=== PATIENT | female | born 1985 | race Caucasian/White ===

== ENCOUNTER 2017-11-15 09:10 | Inpatient (IN) | payer OTHER ==
[~2017-11-15 09:10] MED LIST: DEXTROSE 5%-LACTATED RINGERS 1,000 ML IV SCH
[2017-11-15] MEDS ORDERED: AMPICILLIN SODIUM 2 GM VIAL ONE (09:54)
[2017-11-15] MEDS ORDERED: AMPICILLIN - 2 GM in SODIUM CHLORIDE 100 ML IVPB ONE (09:55)
[2017-11-15 10:14] VITALS: BMI 27.7
--- NOTE | 2017-11-15 11:53 | HP ---
Past Medical History - Admission History Source: Patient - Past Medical History ...: 5 ...Para: 3 ...Term: 3 ...: 0 ...Spon : 1 ...Induced : 0 ...Multiple Gestation: 0 ...EDC by Sono: 11/08/17 - Past Surgical History Past Surgical History: Yes: None Hx Myomectomy: No Hx Transabdominal Cerclage: No - Smoking History Smoking history: Never smoked Have you smoked in the past 12 months: No - Alcohol/Substance Use Hx Alcohol Use: No History of Substance Use: reports: None - Social History Usual Living Arrangement: Yes: With Significant Other Home Medications - Allergies Allergies/Adverse Reactions: Allergies Allergy/AdvReac Type Severity Reaction Status Date / Time No Known Allergies Allergy Verified 11/11/17 09:29 - Home Medications Home Medications: Ambulatory Orders Ferrous Sulfate 325 mg PO DAILY 11/11/17 Pnv No.95/Ferrous Fum/Folic AC [ Vitamin Tablet] 1 each PO DAILY Review of Systems Unable to obtain ROS, reason: neg VB/LOF. Physical Exam - Maternity Vital Signs: Vital Signs Temperature 97.8 F 11/15/17 10:00 Pulse Rate 80 11/15/17 10:00 Respiratory Rate 20 11/15/17 10:00 Blood Pressure 114/76 11/15/17 10:00 O2 Sat by Pulse Oximetry (%) - Abdominal Exam/OB Number of Fetuses: Single Presentation: Vertex Contractions: Yes Regularity: Regular Intensity: Moderate Monitor Mode: External Category: I Accelerations: None Decelerations: Early - Vaginal Exam/OB Vaginal Bleediing: No Presentation: Vertex/Position Station: -3 (50/4-5/-3, intact on presentation; exam by RN) Problem List - Problems (1) Uterine contractions Code(s): LJS3600 - Assessment/Plan 32yo @ 41wks here in labor Cat 1 tracing, early decels Desires NCB Anticipate
[2017-11-15] MEDS ORDERED: WITCH HAZEL 50% (TUCKS) 40 PAD/JAR PAD TP PRN (11:57)
[2017-11-15] MEDS ORDERED: BENZOCAINE 20% 57 GM BOTTLE TP PRN (11:57)
[2017-11-15] MEDS ORDERED: BENZOCAINE 28 GM HEMORRHOIDAL OINTMENT TP PRN (11:57)
[2017-11-15] MEDS ORDERED: BISACODYL 10 MG SUPP.RECT RC PRN (11:57)
--- NOTE | 2017-11-15 11:57 | PN ---
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 No anesthesia. 41wk gestation. Loose body nuchal delivered through. Terminal meconium. Spontaneous delivery of anterior shoulder. placed on maternal abdomen. Cord clamped and cut. Weight pending to allow sufficient skin to skin. Apgars 9/9. Spontaneous delivery of intact placenta. Fundus firm. Perineum inspected, small first degree laceration , repaired with 3-0 vicryl after 44cc of 1% lidocaine injected. Hemostasis noted. EBL 250. Mother and baby doing well.
[2017-11-15] MEDS ORDERED: OXYTOCIN 20 UNITS in 0.9% NS 20 UNIT/1,000 ML INFUS.BAG IV SCH (12:00)
[2017-11-15] MEDS ORDERED: IBUPROFEN 600 MG TABLET (FP) PO ONE (12:09)
[2017-11-15] MEDS ORDERED: ACETAMINOPHEN 325 MG TABLET (FP) ONE (12:09)
[2017-11-15] MEDS: ACETAMINOPHEN 325 MG TABLET (FP) PO PRN ×3 (12:10→21:53)
[2017-11-15] MEDS: IBUPROFEN 600 MG TABLET (FP) PO PRN ×3 (12:10→21:54)
[2017-11-15] MEDS ORDERED: AMPICILLIN - 1 GM in SODIUM CHLORIDE 100 ML IVPB SCH (14:00)
[2017-11-16] MEDS: ACETAMINOPHEN 325 MG TABLET (FP) PO PRN ×4 (02:06→23:14)
[2017-11-16] MEDS: IBUPROFEN 600 MG TABLET (FP) PO PRN ×4 (02:06→23:13)
[2017-11-16 06:55] LABS: BASO % 0.6 % (0-2.0); EOS % 1.9 % (0-4.5); HEMATOCRIT 35.3 % (32.4-45.2); LYMPH % 26.1 % (8-40); MCH 31.1 pg (25.7-33.7); MCHC 33.9 g/dl (32.0-36.0); MEAN CELL VOLUME 91.9 fl (80-96); MEAN PLT VOLUME 8.9 fl (7.5-11.1); MONO % 6.8 % (3.8-10.2); NEUT % 64.6 % (42.8-82.8); PLATELET COUNT 176 K/MM3 (134-434); RBC 3.84 M/mm3 (3.60-5.2); RDW 13.5 % (11.6-15.6); WHITE BLOOD COUNT 13.5 K/mm3 (4.0-10.0)
[2017-11-16] MEDS: PRENATAL VITAMINS W/ FOLIC ACID TABLET (FP) PO SCH (09:21)
--- NOTE | 2017-11-16 10:56 | PN ---
Post Progress Note Type of Delivery: Vital Signs: Vital Signs Temperature 98 F 11/16/17 08:40 Pulse Rate 88 11/16/17 08:40 Respiratory Rate 20 11/16/17 08:40 Blood Pressure 109/69 11/16/17 08:40 O2 Sat by Pulse Oximetry (%) Uterus: Yes: Fundus Firm, Fundus below umbilicus Abdomen/GI: Yes: Abdomen soft Lochia: Yes: Rubra Lochia, amount: Small Extremities: Yes: Calves non-tender Activity: Ambulating - Labs Labs: CBC WBC 13.5 K/mm3 (4.0-10.0) H 11/16/17 05:30 RBC 3.84 M/mm3 (3.60-5.2) 11/16/17 05:30 Hgb 12.0 GM/dL (10.7-15.3) 11/16/17 05:30 Hct 35.3 % (32.4-45.2) 11/16/17 05:30 MCV 91.9 fl (80-96) 11/16/17 05:30 MCH 31.1 pg (25.7-33.7) 11/16/17 05:30 MCHC 33.9 g/dl (32.0-36.0) 11/16/17 05:30 RDW 13.5 % (11.6-15.6) 11/16/17 05:30 Plt Count 176 K/MM3 (134-434) 11/16/17 05:30 MPV 8.9 fl (7.5-11.1) 11/16/17 05:30 Absolute Neuts (auto) 8.7 K/mm3 (1.5-8.0) H 11/16/17 05:30 Neutrophils % 64.6 % (42.8-82.8) 11/16/17 05:30 Lymphocytes % 26.1 % (8-40) D 11/16/17 05:30 Monocytes % 6.8 % (3.8-10.2) 11/16/17 05:30 Eosinophils % 1.9 % (0-4.5) D 11/16/17 05:30 Basophils % 0.6 % (0-2.0) 11/16/17 05:30 Nucleated RBC % 0 % (0-0) 11/16/17 05:30 Problem List - Problems (1) Uterine contractions Code(s): [id number] - Assessment/Plan 32yo s/p , PPD#1 Rh Pos/RI/boy Routine PP care OOB, ambulate D/C to home tomorrow Jaden Mason MD
[2017-11-16] MEDS ORDERED: SENNOSIDES/DOCUSATE COMBO (SENNA PLUS) TABLET (UD) PO PRN (22:00)
[2017-11-17] MEDS: IBUPROFEN 600 MG TABLET (FP) PO PRN ×2 (04:14→09:51)
[2017-11-17] MEDS: ACETAMINOPHEN 325 MG TABLET (FP) PO PRN ×2 (04:14→09:52)
--- NOTE | 2017-11-17 07:41 | DS ---
Physical Exam-CAMPAIGN WORKER Vital Signs: Vital Signs Temperature 97.3 F L 11/16/17 22:00 Pulse Rate 74 11/16/17 22:00 Respiratory Rate 18 11/16/17 22:00 Blood Pressure 98/71 11/16/17 22:00 O2 Sat by Pulse Oximetry (%) Constitutional: Yes: Well Nourished, No Distress, Calm Labs: CBC, BMP 11/16/17 05:30 Delivery - Delivery Type of Anesthesia: Local, None Episiotomy/Laceration: Periurethral Extnsion/lac, 1st degree EBL (cc): 250 Delivery, Single - Stages of Labor Date 1st Stage Initiatied: 11/15/17 Time 1st Stage Initiated: 02:00 Date 2nd Stage Initiated: 11/15/17 Time 2nd Stage Initiated: 11:25 Date of Delivery: 11/15/17 Time of Delivery: 11:37 Time Placenta Delivered: 11:42 - 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: No Infant Gender: Male Weight: 3.6 kg Position: Left, OA Total Hours ROM (Hrs/Mins): 22MIN - 1 Minute Total Score: 9 5 Minutes Total Score: 9 - Feeding Plan Initial Plan: Elected not to breastfeed exclusively throughout hospitalization Remarks - Remarks Remarks: 32yo s/p , PPD#2 Has met all postoperative milestones Routine PP care and exam Lab work reviewed, stable D/C to home today with follow up in 6 weeks Discharge Summary Reason For Visit: LABOR Current Active Problems Uterine contractions (Acute) Condition: Stable - Instructions Diet, Activity, Other Instructions: No intercourse/tampons for 6 weeks Disposition: HOME - Home Medications Comprehensive Discharge Medication List: Ambulatory Orders Ferrous Sulfate 325 mg PO DAILY 11/11/17 Pnv No.95/Ferrous Fum/Folic AC [ Vitamin Tablet] 1 each PO DAILY
[2017-11-17] MEDS: PRENATAL VITAMINS W/ FOLIC ACID TABLET (FP) PO SCH (09:47)
[2017-11-17 11:49] VITALS: BP 100/56; PULSE 83; TEMP 98.8
== END 2017-11-17 12:05 | disposition home or self-care (01) | DRG 560 ==
LOC: JLDR 09:10 → J3W 13:25
PROVIDERS: ADMIT Obstetrics & Gynecology; ATTEND Obstetrics & Gynecology
PROC: 10E0XZZ Delivery of Products of Conception, External Approach (ICD-10-PCS; principal; 2017-11-15)
PROC: 0HQ9XZZ Repair Perineum Skin, External Approach (ICD-10-PCS; 2017-11-15)
PROC: 0W8NXZZ Division of Female Perineum, External Approach (ICD-10-PCS; 2017-11-15)
DX: O70.0 First degree perineal laceration during delivery (principal); Z3A.41 41 weeks gestation of pregnancy; Z37.0 Single live birth
CPT/HCPCS: 36415; 59409; 85025

== ENCOUNTER 2023-02-06 11:35 | Inpatient (IN) | payer OTHER ==
[2023-02-06] MEDS ORDERED: DINOPROSTONE 10 MG VAGINAL SUPPOSITORY VG ONE (12:21)
[2023-02-06] MEDS: ELECTROLYTE-148 SOLN 1,000 ML IV SCH ×3 (12:40→21:25)
[2023-02-06 13:04] LABS: BASO % 0.8 % (0-2.0); EOS % 0.8 % (0-4.5); HEMOGLOBIN 12.7 GM/dL (10.7-15.3); LYMPH % 25.7 % (8-40); MCH 30.1 pg (25.7-33.7); MCHC 33.3 g/dl (32.0-36.0); MEAN CELL VOLUME 90.3 fl (80-96); MEAN PLT VOLUME 9.8 fl (7.5-11.1); MONO % 8.7 % (3.8-10.2); PLATELET COUNT 196 10^3/uL (134-434); RBC 4.21 M/mm3 (3.60-5.2); RDW 13.9 % (11.6-15.6); WHITE BLOOD COUNT 6.5 K/mm3 (4.0-10.0)
[2023-02-06 13:11] LABS: INR 0.9 (0.83-1.09); PROTHROMBIN TIME (PATIENT) 10.5 SEC (9.7-13.0)
[2023-02-06 13:13] LABS: ACTIVATED PTT 27.6 SECONDS (25.2-36.5)
[2023-02-06 13:27] LABS: POTASSIUM 3.8 mmol/L (3.5-5.1)
[2023-02-06 13:29] LABS: ALBUMIN 2.4 g/dl (3.4-5.0); BLOOD UREA NITROGEN 7.2 mg/dL (7-18); CALCIUM 8.4 mg/dL (8.5-10.1)
[2023-02-06 13:33] LABS: CREATININE 0.6 mg/dL (0.55-1.3)
[2023-02-06 13:34] LABS: BILIRUBIN,TOTAL 0.6 mg/dL (0.2-1)
[2023-02-06 13:48] VITALS: BMI 27.3
[2023-02-06 14:00] LABS: TOT PROT 6.3 g/dl (6.4-8.2)
[2023-02-06] MEDS ORDERED: OXYTOCIN 30 UNITS in 0.9% NS 30 UNIT/500 ML INFUS.BAG IVPB ONE (19:40)
[2023-02-06] MEDS ORDERED: diphenhydrAMINE HCL 25 MG CAPSULE (FP) PO ONE (19:40)
[2023-02-06] MEDS ORDERED: diphenhydrAMINE HCL 25 MG CAPSULE (FP) PO PRN (20:53)
[2023-02-06] MEDS ORDERED: OXYTOCIN 30 UNITS in 0.9% NS 30 UNIT/500 ML INFUS.BAG IVPB SCH (21:00)
[2023-02-07] MEDS ORDERED: PROMETHAZINE HCL 25 MG/1 ML VIAL IVPUSH ONE (02:32)
[2023-02-07] MEDS ORDERED: PROMETHAZINE HCL 25 MG/1 ML VIAL IVPB ONE (02:32)
[2023-02-07] MEDS ORDERED: BUTORPHANOL TARTRATE 1 MG/ML VIAL IVPUSH ONE (02:32)
[2023-02-07] MEDS ORDERED: BUTORPHANOL TARTRATE 1 MG/ML VIAL IVPUSH PRN (02:32)
[2023-02-07] MEDS ORDERED: BUTORPHANOL TARTRATE 2 MG/ML VIAL ONE (02:58)
[2023-02-07] MEDS ORDERED: OXYTOCIN 20 UNITS in 0.9% NS 20 UNIT/1,000 ML INFUS.BAG IV ONE (08:31)
[2023-02-07] MEDS ORDERED: BENZOCAINE 28 GM HEMORRHOIDAL OINTMENT TP PRN (09:20)
[2023-02-07] MEDS ORDERED: oxyCODONE HCL 5 MG TABLET PO PRN (09:20)
[2023-02-07] MEDS ORDERED: METHYLERGONOVINE MALEATE 0.2 MG/1 ML AMP IM PRN (09:20)
[2023-02-07] MEDS ORDERED: ACETAMINOPHEN 325 MG TABLET (FP) PO PRN (09:20)
[2023-02-07] MEDS ORDERED: WITCH HAZEL 50% (TUCKS) 40 PAD/JAR PAD TP PRN (09:20)
[2023-02-07] MEDS ORDERED: BISACODYL 10 MG SUPP.RECT RC PRN (09:20)
[2023-02-07] MEDS ORDERED: BENZOCAINE 20% 57 GM BOTTLE TP PRN (09:20)
[2023-02-07] MEDS ORDERED: METHYLERGONOVINE MALEATE 0.2 MG/1 ML AMP IM ONE (09:21)
[2023-02-07] MEDS ORDERED: OXYTOCIN 20 UNITS in 0.9% NS 20 UNIT/1,000 ML INFUS.BAG IV SCH (09:30)
[2023-02-07 10:42] LABS: CORD BASE EXCESS -6.1 mmol/L (0-2); CORD HCO3 20.8 mmHg (20-29); CORD pH 7.274 (7.14-7.44)
[2023-02-07 10:53] LABS: CORD BASE EXCESS -7.7 mmol/L (0-2); CORD HCO3 17.4 mmHg (20-29); CORD PCO2 34.6 mmHg (30-78); CORD pH 7.319 (7.14-7.44)
[2023-02-07] MEDS ORDERED: oxyCODONE HCL 5 MG TABLET ONE (11:37)
[2023-02-07] MEDS: IBUPROFEN 600 MG TABLET (FP) PO PRN (15:07)
[2023-02-08 06:38] LABS: BASO % 0.9 % (0-2.0); EOS % 0.8 % (0-4.5); HEMATOCRIT 33.9 % (32.4-45.2); HEMOGLOBIN 11.2 GM/dL (10.7-15.3); LYMPH % 26.3 % (8-40); MCH 29.9 pg (25.7-33.7); MEAN CELL VOLUME 90.8 fl (80-96); MEAN PLT VOLUME 9.4 fl (7.5-11.1); MONO % 6.2 % (3.8-10.2); NEUT % 65.8 % (42.8-82.8); PLATELET COUNT 181 10^3/uL (134-434); RBC 3.73 M/mm3 (3.60-5.2); RDW 13.4 % (11.6-15.6); WHITE BLOOD COUNT 12.7 K/mm3 (4.0-10.0)
[2023-02-08] MEDS: IBUPROFEN 600 MG TABLET (FP) PO PRN (16:49)
[2023-02-08] MEDS ORDERED: SENNOSIDES/DOCUSATE COMBO (SENNA PLUS) TABLET (UD) PO PRN (22:00)
[2023-02-09] MEDS: IBUPROFEN 600 MG TABLET (FP) PO PRN ×2 (01:16→08:00)
[2023-02-09 12:22] VITALS: BP 100/62; PULSE 80; RESP 18; TEMP 98
== END 2023-02-09 13:30 | disposition home or self-care (01) | DRG 560 ==
LOC: JLDR 11:35 → J3W 02-07 12:05
PROVIDERS: ADMIT Obstetrics & Gynecology; ATTEND Obstetrics & Gynecology
PROC: 3E0P7VZ Introduction of Hormone into Female Reproductive, Via Natural or Artificial Opening (ICD-10-PCS; 2023-02-06)
PROC: 10E0XZZ Delivery of Products of Conception, External Approach (ICD-10-PCS; principal; 2023-02-07)
PROC: 10907ZC Drainage of Amniotic Fluid, Therapeutic from Products of Conception, Via Natural or Artificial Opening (ICD-10-PCS; 2023-02-07)
DX: O26.613 Liver and biliary tract disorders in pregnancy, third trimester (principal); K83.1 Obstruction of bile duct; Z3A.37 37 weeks gestation of pregnancy; Z37.0 Single live birth
CPT/HCPCS: 36415; 36600; 80048; 80053; 82803; 85025; 85610; 85730; 86780; 86850; 86900; 86901